=== PATIENT | male | born 1985 | race Caucasian/White ===

== ENCOUNTER 2022-05-17 06:33 | Emergency (ER) | payer SELFPAY ==
[~2022-05-17] VITALS: Ht 188 cm; Wt 113.4 kg
[2022-05-17 06:41] VITALS: BP 168/109
--- NOTE | 2022-05-17 06:45 | NUR ---
Patient ambulated to bed 11.
--- NOTE | 2022-05-17 07:25 | NUR ---
37 y/o male c/o possible allergic reaction. Swelling noted to bottom lip x yesterday. States discomfort in throat with some difficulty breathing when prompting deep breath. Satting at 99% on RA. Reports being seen at another ER yesterday but became "inpatient and left". 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 Denies fever, chills, nvd. Denies trying new foods, detergents, or facial products. Pain rated at 4/10, throbbing. pmh: denies nka
--- NOTE | 2022-05-17 07:37 | NUR ---
pt left room at this time
--- NOTE | 2022-05-17 07:39 | NUR ---
pt returned back to room
--- NOTE | 2022-05-17 07:54 | NUR ---
pt left room at this time
--- NOTE | 2022-05-17 07:55 | NUR ---
PATIENT LEFT WITHOUT BEING SEEN BY DR. DIETRICH. NO FURTHER CARE PROVIDED FOR PATIENT.
== END 2022-05-17 07:55 | disposition left against medical advice (07) ==
LOC: MED 06:33
DX: T78.40XA Allergy, unspecified, initial encounter (principal); Z53.21 Procedure and treatment not carried out due to patient leaving prior to being seen by health care provider; X58.XXXA Exposure to other specified factors, initial encounter